=== PATIENT | male | born 1950 | race Caucasian/White ===

== ENCOUNTER 2021-01-06 06:46 | Day surgery (SDC) | payer MEDICARE, OTHER ==
[~2021-01-06 06:46] MED LIST: Lactated Ringers 1,000 ML IV SCH
[2021-01-06] MEDS ORDERED: Xylocaine-Mpf 2% 5 Ml Vial ONE (07:37)
[2021-01-06] MEDS ORDERED: DIPRIVAN 200 MG/20 ML IV ONE (07:37)
[2021-01-06 08:45] VITALS: O2SAT 98
[2021-01-06 08:51] VITALS: BP 125/76; PULSE 59
--- NOTE | 2021-01-07 07:57 | OP ---
SURGERY DATE/TIME: 01/06/2021 0740 PREOPERATIVE DIAGNOSIS: Abdominal pain and weight loss. POSTOPERATIVE DIAGNOSES: 1) Large hiatal hernia. 2) Mild gastritis. 3) Healing gastric ulcer. PROCEDURE: Esophagogastroduodenoscopy with cold forceps biopsy. SURGEON: Dr. Terry. ANESTHESIA: Medications were given by the anesthesia department. BRIEF HISTORY: The patient is a 70-year-old white male patient who reports he had trouble with distention, weight loss and abdominal pain which has been resolving recently. The patient was felt to need to have endoscopic evaluation. He was appraised of the risks of the procedure including the risk of perforation, phlebitis, untoward reaction to medication, bleeding and missed lesions. The patient verbalized his understanding and desired to have the procedure performed. DESCRIPTION OF PROCEDURE: The patient was given the medications by the anesthesia department. He had continuous pulse oximetry, ECG monitoring, intermittent blood pressure monitoring and tidal CO2 monitoring during the examination. He was placed in the left lateral decubitus position. A bite block was placed and the flexible Olympus gastroscope was used to intubate the oropharynx. A view of the larynx was obtained and was normal. The scope was easily introduced in the esophagus which appeared to be normal to the distal third where there appeared to be the presence of hiatal hernia. The scope was passed into the stomach where normal gastric rugal folds were seen and these distended nicely with insufflation of air. The gastric weathers was suctioned dry. I did note what appeared to be a small healing gastric ulcer with apparent blood clot at the base of the area just proximal to the antrum. The scope was passed in the stomach. The pylorus was widely patent and the scope was advanced into the duodenum which appeared to be essentially normal. The scope was withdrawn towards the stomach. Again, retroflex view was obtained of the lesser curvature, fundus and cardia region of the stomach. There appeared to be a hiatal hernia and to be fairly large. The scope was then redirected towards the gastric antrum and biopsies were taken to rule out the presence of Helicobacter pylori-type organisms. The scope is then removed from the patient who tolerated the procedure well and sent back to outpatient recovery in good condition.
== END 2021-01-06 08:55 | disposition home or self-care (01) ==
LOC: SDC 06:46
PROVIDERS: ATTEND Family Medicine
DX: K44.9 Diaphragmatic hernia without obstruction or gangrene (principal); K29.70 Gastritis, unspecified, without bleeding; K25.9 Gastric ulcer, unspecified as acute or chronic, without hemorrhage or perforation; R10.9 Unspecified abdominal pain; R63.4 Abnormal weight loss
CPT/HCPCS: 88305; 99100; J2704

== ENCOUNTER 2021-07-28 06:03 | Day surgery (SDC) | payer MEDICARE, OTHER ==
[2021-07-28] MEDS ORDERED: Lactated Ringers 1,000 ML IV SCH (06:30)
[2021-07-28] MEDS ORDERED: Versed 2 MG/2 ML Injection ONE (06:57)
[2021-07-28] MEDS ORDERED: Xylocaine-Mpf 2% 5 Ml Vial ONE (06:57)
[2021-07-28] MEDS ORDERED: DIPRIVAN 200 MG/20 ML IV ONE (06:57)
[2021-07-28 08:30] VITALS: O2SAT 100
[2021-07-28 08:36] VITALS: BP 120/78; PULSE 68
--- NOTE | 2021-07-28 09:24 | OP ---
SURGERY DATE/TIME: 07/28/2021 0702 PREOPERATIVE DIAGNOSIS: Epigastric pain. POSTOPERATIVE DIAGNOSES: 1) Hiatal hernia. 2) Esophagitis. 3) Gastritis. PROCEDURE: Esophagogastroduodenoscopy with cold forceps biopsy. SURGEON: Dr. Terry. ANESTHESIA: Medications were given by the anesthesia department. BRIEF HISTORY: The patient is a 71-year-old white male patient presenting with intermittent epigastric pain. He is on omeprazole and does not take any NSAID's. The patient is felt the need to have endoscopic evaluation. He was appraised of the risks of the procedure including the risk of perforation, phlebitis, untoward reaction to medication, bleeding and missed lesions. The patient verbalized his understanding and desired to have the procedure performed. DESCRIPTION OF PROCEDURE: The patient was given the medications by the anesthesia department. He had continuous pulse oximetry, ECG monitoring, intermittent blood pressure monitoring during the examination. He was placed in the left lateral decubitus position. A bite block was placed. The flexible Olympus gastroscope was used to intubate the oropharynx. The scope was easily introduced in the esophagus which appeared normal to the area of what appeared to be a hiatal hernia which appeared to be erythematous. There is a small what appeared to be polypoid-type lesion developing sessile in nature that was biopsied using cold biopsy technique. The scope was then introduced into the stomach where normal gastric rugal folds were seen. These distended with insufflation of air. The scope was passed along the greater curvature of the stomach to the antrum. Biopsies were obtained of the antrum to rule out the presence of Helicobacter pylori-type organisms and confirm gastritis. The scope is passed through the pylorus and duodenum inspected and found to be normal. The scope is withdrawn towards the stomach again. A retroflex view was obtained of the lesser curvature, fundus and cardia regions of the stomach and we noted hiatal hernia but no other pathology was present. The scope was then removed from the patient who tolerated the procedure well and was sent back to outpatient recovery in good condition.
== END 2021-07-28 08:30 | disposition home or self-care (01) ==
LOC: SDC 06:03
PROVIDERS: ATTEND Family Medicine
DX: K44.9 Diaphragmatic hernia without obstruction or gangrene (principal); K20.90 Esophagitis, unspecified without bleeding; K29.70 Gastritis, unspecified, without bleeding
CPT/HCPCS: 99100; J2250; J2704

== ENCOUNTER 2021-12-01 11:31 | Day surgery (SDC) | payer MEDICARE, OTHER ==
--- NOTE | 2021-12-01 08:31 | HP ---
DATE OF SURGERY: 12/01/2021 HISTORY OF PRESENT ILLNESS: The patient is a 71-year-old this May felt a bulge left inguinal area and some pain. The bulge increases with activity. It is felt he has left inguinal hernia. PAST MEDICAL HISTORY: Saunders's esophagus. PAST SURGICAL HISTORY: The patient had prior inguinal hernia repair in the past. Removal cancer tumor of the bladder. Dissection of the esophagus in the past. MEDICATIONS: Tamsulosin, omeprazole, simvastatin, multivitamin. The patient had been on some amoxicillin and clarithromycin in the past. ALLERGIES: NKDA. FAMILY HISTORY: Cancer. SOCIAL HISTORY: Quit smoking in 2003. REVIEW OF SYSTEMS: Fourteen systems reviewed. No chest pain or palpitations. Other systems negative or noncontributory as above and per preadmission questionnaire. PHYSICAL EXAMINATION: GENERAL: No acute distress. HEENT: Sclerae nonicteric. NECK: No JVD. CHEST: Equal excursion, nonlabored breathing. CVS: Regular rate and rhythm. ABDOMEN: Soft. No peritoneal signs. There is left inguinal hernia on exam. No gross recurrence on right currently. EXTREMITIES: No significant edema. NEURO: Alert, oriented, moving extremities symmetrically. PSYCH: Appropriate mood and affect. IMPRESSION: Left inguinal hernia. I feel he would benefit from repair. He was discussed options of open versus robotic repair. Risks and benefits explained in detail but not limited to bleeding or infection, risk of hematoma or seroma formation, risk of ingrown hair or suture reaction, risk of mesh infection possibly requiring removal. Risks of aches, pains, burning, numbness lower abdomen, groin, thigh or scrotal area possibly retirement or chronic to 10 to 12% with risk of sensory nerve irritation, scar formation or injury. Risk of urinary retention. Remote risk of vas or vascular issues or injury. Risk of hernia recurrence but not limited to. We had a long discussion. He prefers to proceed with open repair as his other repair had been open. He prefers to proceed with open repair left inguinal hernia with mesh.
[~2021-12-01 11:31] MED LIST changes: -Lactated Ringers 1,000 ML IV SCH; +Sensorcaine 0.25% 10 ML ONE
[2021-12-01] MEDS ORDERED: CEFAZOLIN 2 GM-D5W BAG** 2 GM/50 ML ML IV SCH (12:00)
[2021-12-01] MEDS ORDERED: Lactated Ringers 1,000 ML IV SCH (12:00)
[2021-12-01] MEDS ORDERED: CEFAZOLIN 2 GM-D5W BAG** 2 GM/50 ML ML IV ONE (12:42)
[2021-12-01] MEDS ORDERED: Lactated Ringers 1,000 ML IV ONE (12:43)
[2021-12-01 13:16] LABS: ALBUMIN 3.5 g/dL (3.5-5.0); ALKALINE PHOSPHATASE 73 U/L (38-126); ANION GAP 8.3 MEQ/L (5-15); BLOOD UREA NITROGEN 8 mg/dL (9-20); CHLORIDE 97 mmol/L (98-107); Carbon Dioxide 30 mmol/L (22-30); Creatinine 1 0.94 mg/dL (0.66-1.25); EST GLOMERULAR FILTRATION RATE > 60.0 ML/MIN; Glucose 103 mg/dL (74-106); Potassium 4.6 mmol/L (3.5-5.1); SGOT/AST 30 U/L (17-59); SGPT/ALT 18 U/L (0-50); SODIUM 131 mmol/L (137-145); Total Protein 5.9 g/dL (6.3-8.2)
[2021-12-01] MEDS ORDERED: Pre-Attached Lta Kit TP ONE (14:30)
[2021-12-01] MEDS ORDERED: OFIRMEV 100 ML IV ONE (14:30)
[2021-12-01] MEDS ORDERED: DIPRIVAN 200 MG/20 ML IV ONE (14:42)
[2021-12-01] MEDS ORDERED: Xylocaine-Mpf 2% 5 Ml Vial ONE (14:43)
[2021-12-01] MEDS ORDERED: Zofran 4 MG/2 ML VIAL ONE (14:43)
[2021-12-01] MEDS ORDERED: Quelicin Fliptop 200 MG/10 ML ONE (14:43)
[2021-12-01] MEDS ORDERED: Decadron 4 MG INJ ONE (14:43)
[2021-12-01] MEDS ORDERED: SUBLIMAZE 100 MCG/2 ML ONE ×2 (14:45→16:41)
[2021-12-01] MEDS ORDERED: Versed 2 MG/2 ML Injection ONE (14:52)
[2021-12-01] MEDS ORDERED: Sensorcaine 0.25% 10 ML ONE (15:58)
[2021-12-01 17:40] VITALS: BP 129/72; PULSE 84; O2SAT 96
--- NOTE | 2021-12-02 09:04 | OP ---
SURGERY DATE/TIME: 12/01/2021 1449 PREOPERATIVE DIAGNOSIS: Left inguinal hernia. POSTOPERATIVE DIAGNOSIS: Left inguinal hernia. PROCEDURE: Open repair left inguinal with mesh. SURGEON: Dr. Derrick Hanna. ANESTHESIA: General. ESTIMATED BLOOD LOSS: Minimal. INDICATIONS: As noted above. Risks and benefits explained in detail and not limited to and consent obtained. DESCRIPTION OF PROCEDURE AND FINDINGS: The patient is taken to the operating room. General anesthesia induced. Abdomen prepped and draped in the usual sterile fashion. After official time out and no disagreement with planned procedure, a transverse incision made dissection carried down through Amna fascia. Small hypogastric vein was divided and ligated with Vicryl tie. Dissection carried down through the Amna, external oblique split in the direction of its fibers towards the internal ring. The cord was gently mobilized off the pubic tubercle with Racquel drain. It was felt he had direct and indirect hernia component. Cremasteric fibers carefully . Moderate sized indirect hernia sac with sliding colon component. It took some time but carefully dissected free the colon stuck to the hernia sac was reduced back down in the abdomen. The hernia sac then high ligated internal ring with 0 Prolene. The hernia sac passed off. At this point the direct hernia component imbricated down with running 0 PDS. It was felt the patient would benefit from mesh repair. Small keyhole mesh carefully secured, trimmed just slightly. It was then secured to fascia overlying the pubic tubercle with 0 Prolene along Joseph's ligament along the shelving portion of the inguinal ligament with 0 Prolene and finally to the internal ring. 0 Prolene used to transfix the rectus fascia medially. The tails of the mesh tacked together laterally with 0 Prolene. The top edge of the mesh secured to the aponeurosis internal oblique with 0 Vicryl avoiding the visible branches of the hypogastric nerve. The inguinal nerve had been protected on the cord itself. The new internal ring was felt to be not too tight. The tails of the mesh were nice and flat on external oblique laterally. Good hemostasis noted. Wound irrigated out. External oblique closed with 0 Vicryl. Amna closed with 3-0 Vicryl, subcu closed with 3-0 Vicryl, skin closed with 4-0 Vicryl. Steri-Strips and sterile dressings applied. 0.25% Marcaine local injected along the skin incision back towards the origin of the inguinal nerve back towards the anterior iliac spine. The patient tolerated the procedure well. Findings discussed with the family out in the waiting area.
== END 2021-12-01 17:55 | disposition home or self-care (01) ==
LOC: SDC 11:31
PROVIDERS: ATTEND Surgery
DX: K40.90 Unilateral inguinal hernia, without obstruction or gangrene, not specified as recurrent (principal); Z85.51 Personal history of malignant neoplasm of bladder
CPT/HCPCS: 36415; 64486; 80053; 93005; J0330; J0690; J1100; J2250; J2405; J2704; J3010

== ENCOUNTER 2022-02-23 09:05 | Day surgery (SDC) | payer MEDICARE, OTHER ==
--- NOTE | 2022-02-23 07:46 | HP ---
DATE OF SURGERY: 02/23/2022 HISTORY OF PRESENT ILLNESS: The patient is a 71-year-old gentleman who had a hernia repair in the past, has history of Saunders's esophagus in the past. He had inguinal hernia repair. He had removal of a cancer tumor bladder. PAST MEDICAL HISTORY: Saunders's esophagus. PAST SURGICAL HISTORY: Esophageal procedure in the past. Inguinal hernia repair. He had removal of a cancer tumor bladder. MEDICATIONS: Tamsulosin, omeprazole, simvastatin, multivitamin. ALLERGIES: NKDA. FAMILY HISTORY: Cancer. SOCIAL HISTORY: He smoked in the past. REVIEW OF SYSTEMS: Fourteen systems reviewed. No chest pain or palpitations. Other systems negative or noncontributory as above and per preadmission questionnaire. PHYSICAL EXAMINATION: GENERAL: No acute distress. HEENT: Sclerae nonicteric. NECK: No JVD. CHEST: Equal excursion, nonlabored breathing. CVS: Regular rate and rhythm. ABDOMEN: Soft. No peritoneal signs. EXTREMITIES: No significant edema. NEURO: Alert, oriented, moving extremities symmetrically. RECTAL: Deferred timed to endoscopy exam. PSYCH: Appropriate mood and affect. IMPRESSION: He is in need of follow up screening colonoscopy. I feel he is a candidate. General risk of bleeding or infection, risk of bowel injury or perforation, risk of missed or nondiagnosis or incomplete exam, possibly requiring barium enema, other studies or procedures, general risk of anesthesia or sedation, risk of bowel prep but not limited to, consent obtained. Will proceed with outpatient colonoscopy under MAC anesthesia.
[2022-02-23] MEDS: Lactated Ringers 1,000 ML IV SCH (09:45)
[2022-02-23] MEDS ORDERED: DIPRIVAN 200 MG/20 ML IV ONE (11:38)
[2022-02-23 12:05] VITALS: O2SAT 100
[2022-02-23 12:34] VITALS: BP 124/84; PULSE 72
--- NOTE | 2022-02-23 13:28 | OP ---
SURGERY DATE/TIME: 02/23/2022 1139 PREOPERATIVE DIAGNOSIS: Need for screening colonoscopy. POSTOPERATIVE DIAGNOSES: 1) Colon polyp. 2) Diverticulosis. 3) Fair bowel prep. 4) Withdrawal time approximately eight minutes. PROCEDURES: 1) Colonoscopy to cecum with hot biopsy polypectomy transverse colon polyp. 2) Hot biopsy polypectomy early sigmoid colon polyp versus hyperplastic lesion, path pending. 3) Hot biopsy polypectomy small early rectal polyp x2, path pending. SURGEON: Dr. Derrick Hanna. ANESTHESIA: MAC. ESTIMATED BLOOD LOSS: Minimal. INDICATIONS: As noted above. Risks and benefits explained in detail but not limited to and consent obtained. DESCRIPTION OF PROCEDURE AND FINDINGS: The patient is taken to the endoscopy room. MAC anesthesia induced. After official time out and no disagreement with planned procedure, digital rectal exam did not reveal any rectal masses. He had minimal internal hemorrhoids. Video colonoscope inserted and passed up through the slightly tortuous sigmoid, descending, transverse and ascending colon around to the cecum. Appendiceal orifice and ileocecal valve well visualized and photo documented. Prep overall was fair a bit on the little limited side with foamy liquidy semisolid stool this is suctioned irrigated out as clear as possible. The scope is slowly and carefully withdrawn. Small early polyp in the transverse colon removed with hot biopsy polypectomy. Two in the sigmoid colon and two in the rectum were also removed with hot biopsy polypectomy. Good hemostasis was noted. He had diverticulosis throughout the colon a little more prominent on the left colon but throughout the entire colon. The scope is withdrawn. The patient tolerated the procedure well. There were no immediate complications. I will see if he has family to discuss the findings with.
== END 2022-02-23 12:35 | disposition home or self-care (01) ==
LOC: SDC 09:05
PROVIDERS: ATTEND Surgery
DX: Z12.11 Encounter for screening for malignant neoplasm of colon (principal); K57.30 Diverticulosis of large intestine without perforation or abscess without bleeding; D12.7 Benign neoplasm of rectosigmoid junction; D12.5 Benign neoplasm of sigmoid colon; D12.3 Benign neoplasm of transverse colon
CPT/HCPCS: 99100; J2704

== ENCOUNTER 2024-06-19 09:01 | Day surgery (SDC) | payer MEDICARE, OTHER ==
[2024-06-19] MEDS: Lactated Ringers 1,000 ML IV SCH (09:07)
[2024-06-19 09:15] VITALS: RESP 18; TEMP 97.7
--- NOTE | 2024-06-19 09:28 | HP ---
HISTORY OF PRESENT ILLNESS: Patient has occasional left lower quadrant aches, occasional passing gas episodes. No vomiting or upper abdominal pain right at the moment. He has had history of polyps in 2021. He has had some constipation in the past. In need of followup screening colonoscopy. Family history of polyps. He was told he had CT scan, had some gallstones but the report I reviewed did not seem to be any. He did not have an ultrasound done at this time. PAST MEDICAL HISTORY: Abdominal aortic aneurysm in the past, had heartburn and reflux in the past, had bladder cancer in the past. Follows with Dr. Melgar. HOME MEDICATIONS: Pepcid, multivitamin, tamsulosin, simvastatin for some hyperlipidemia, and omeprazole for some reflux. ALLERGIES: No known drug allergies. PAST SURGICAL HISTORY: He had inguinal hernia repair bilaterally in the past. SOCIAL HISTORY: Occasional alcohol use. Former smoker. FAMILY HISTORY: Father with dementia. REVIEW OF SYSTEMS: Twelve systems reviewed. Pertinent for problems as noted above. No chest pain or palpitations. He is followed by Dr. Melgar for his bladder cancer. PHYSICAL EXAMINATION: GENERAL: Height 5 feet 2 inches. BMI 21. No acute distress. HEENT: Sclerae anicteric. NECK: No JVD. CARDIOVASCULAR: Regular rate and rhythm. RESPIRATORY: Equal excursion, nonlabored breathing. ABDOMEN: Soft. No peritoneal signs. SKIN: Dry. EXTREMITIES: No cyanosis or edema. NEUROLOGIC: Alert and oriented. Moving all extremities symmetrically. PSYCHIATRIC: Appropriate mood and affect. RECTAL: Deferred until time of endoscopy exam. IMPRESSION: He has history of polyps, history of some left lower quadrant aches at times, history of diverticulosis, history of polyps. The CT report I saw showed no gallstones. Recommend gallbladder ultrasound to evaluate for gallstones. If negative, check with HIDA scan given the concern about the gallbladder. Otherwise, given his history of left lower quadrant pain and history of polyps, recommend followup screening colonoscopy. Risk sheet shown. Risks including but not limited to bleeding, infection; risk of bowel injury or perforation possibly requiring other procedure; risk of missed or nondiagnosis or incomplete exam possibly requiring barium enema or other studies or procedures; risk of anesthesia or sedation; risk of bowel prep, but not limited to. We will proceed with outpatient colonoscopy under MAC anesthesia. Otherwise, continue medications for reflux, hyperlipidemia, and history of bladder cancer. Otherwise, check gallbladder ultrasound. If negative, consider HIDA.
[2024-06-19] MEDS ORDERED: propofoL IV ONE (11:52)
[2024-06-19] MEDS ORDERED: Xylocaine-Mpf 2% 5 Ml Vial ONE (11:52)
[2024-06-19] MEDS ORDERED: ATROPINE SULFATE 1MG ONE (12:04)
[2024-06-19] MEDS ORDERED: Ephedrine Sulfate 50 MG/ML ONE (12:07)
[2024-06-19 12:50] VITALS: PULSE 76; O2SAT 99
[2024-06-19 13:03] VITALS: BP 113/70
--- NOTE | 2024-06-20 12:31 | OP ---
SURGERY DATE/TIME: 06/19/2024 [id number] PREOPERATIVE DIAGNOSIS: History of polyps, history of some left lower quadrant aches. POSTOPERATIVE DIAGNOSES: 1) ASA Class 3. 2) Pancolonic diverticulosis. 3) Colon polyps. 4) Fair bowel prep. PROCEDURE: 1) Colonoscopy to the cecum, hot biopsy polypectomy ascending colon polyp. 2) Hot biopsy polypectomy, sigmoid colon polyp. 3) Hot biopsy polypectomy, rectal polyps versus hyperplastic lesion x3. 4) Random cold biopsy left colon. SURGEON: Giuseppe Hanna MD ANESTHESIA: MAC. ESTIMATED BLOOD LOSS: Minimal. INDICATIONS: Consent was obtained. DESCRIPTION OF PROCEDURE AND FINDINGS: Patient was taken to the endoscopy room. MAC anesthesia induced. After official time-out, no disagreement with planned procedure. Digital rectal exam did not reveal any rectal masses. Videocolonoscope inserted, passed up through tortuous sigmoid, descending, transverse, ascending colon. With 2 staff members pushing on the abdomen, the scope was able to passed to the cecum. Appendiceal orifice and valve well visualized, photo documented. The scope was carefully withdrawn over the next 10 or 11 minutes. Stopped in the ascending colon, there was a small polyp, another one in the sigmoid colon, and then 3 small early polyps versus hyperplastic lesions in the rectum. He did have pancolonic diverticulosis. There were no signs of any gross macroscopic inflammation. Some random cold biopsies were taken in the left colon. Otherwise, the scope was carefully pulled back. Again, small polyp in the ascending colon, small polyp in the sigmoid colon, and 3 small polyps in the rectum were removed with hot biopsy forceps. He had pancolonic diverticulosis. Random cold biopsies were done in the left colon to evaluate for microscopic colitis. Scope was withdrawn. Patient tolerated procedure well. Findings discussed with family out in the waiting area. He has a gallbladder ultrasound and/or HIDA pending.
== END 2024-06-19 13:03 | disposition home or self-care (01) ==
LOC: SDC 09:01
PROVIDERS: ATTEND Surgery
DX: Z12.11 Encounter for screening for malignant neoplasm of colon (principal); Z85.51 Personal history of malignant neoplasm of bladder; Z87.19 Personal history of other diseases of the digestive system; K57.30 Diverticulosis of large intestine without perforation or abscess without bleeding; D12.2 Benign neoplasm of ascending colon; D12.5 Benign neoplasm of sigmoid colon
CPT/HCPCS: 93005; 99100; J0461; J2704